=== PATIENT | male | born 1990 ===

== ENCOUNTER 2021-12-23 20:41 | Emergency (ER) | payer OTHER ==
[~2021-12-23] VITALS: Ht 170.2 cm; Wt 86.0 kg
[2021-12-23 21:25] VITALS: BP 136/80
== END 2021-12-23 22:17 | disposition home or self-care (01) ==
LOC: EMS 20:45
DX: F10.129 Alcohol abuse with intoxication, unspecified (principal); Z82.0 Family history of epilepsy and other diseases of the nervous system; Z85.9 Personal history of malignant neoplasm, unspecified; Z86.79 Personal history of other diseases of the circulatory system; Z98.890 Other specified postprocedural states
CPT/HCPCS: 99283